=== PATIENT | male | born 1955 | race Caucasian/White ===

== ENCOUNTER 2018-02-15 16:03 | Emergency (ER) | payer OTHER ==
[~2018-02-15] VITALS: Ht 185.4 cm; Wt 93.9 kg
--- NOTE | 2018-02-15 18:30 | NUR ---
in room. not in distress
--- NOTE | 2018-02-15 18:58 | NUR ---
seen by Addy, aspirating right shoulder growth
--- NOTE | 2018-02-15 19:10 | NUR ---
report given to Lorenzo
--- NOTE | 2018-02-15 19:16 | NUR ---
Patient discharged to home in stable conditon. Written and verbal after care instructions given. Patient verbalizes understanding of instructions. Pt ambulated out of ER with steady gait, no acute signs of distress, VSS, all belongings taken.
[2018-02-15 19:17] VITALS: BP 133/82
== END 2018-02-15 19:17 | disposition home or self-care (01) ==
LOC: ER 16:03
DX: L72.0 Epidermal cyst (principal)
CPT/HCPCS: A4663